=== PATIENT | male | born 1950 | race Asian ===

== ENCOUNTER 2019-12-07 14:41 | Emergency (ER) | payer MEDICARE ==
[~2019-12-07] VITALS: Ht 162.6 cm; Wt 68.9 kg
[2019-12-07] MEDS ORDERED: ATOR10TA PO (14:48)
[2019-12-07] MEDS ORDERED: MELA5TAB PO (14:48)
[2019-12-07] MEDS ORDERED: CLON0.1T PO (14:48)
[2019-12-07] MEDS ORDERED: ALBU8.5H8 IH (14:48)
[2019-12-07] MEDS ORDERED: ATEN25TA PO (14:48)
[2019-12-07] MEDS ORDERED: ASCO500T9 PO (14:48)
[2019-12-07] MEDS ORDERED: METH-406 PO (14:48)
[2019-12-07] MEDS ORDERED: IBUP-2715 PO (14:48)
[2019-12-07] MEDS ORDERED: MAGN400O6 PO (14:48)
[2019-12-07] MEDS ORDERED: DULO30CA2 PO (14:48)
[2019-12-07] MEDS ORDERED: MULT-24 PO (14:48)
[2019-12-07] MEDS ORDERED: MELO-105 PO (14:48)
--- NOTE | 2019-12-07 15:00 | NUR ---
[facility]IB [facility] C/O HIGH BP 180S, PT IS AAOX4, NOT IN RESPIRATORY DISTRESS, HOOKED TO MONITOR, KEPT RESTED AND COMFORTABLE, WILL CONTINUE TO MONITOR.
--- NOTE | 2019-12-07 15:05 | NUR ---
SEEN AND EXAMINED BY .
--- NOTE | 2019-12-07 15:15 | NUR ---
IV LINE ESTABLISHED, BLOOD DRAWN AND SENT TO LAB.
[2019-12-07 15:41] LABS: BASOPHILS # (AUTO) 0.1 /CMM (0.0-0.2); BASOPHILS % (AUTO) 0.8 % (0.0-2.0); HEMATOCRIT 32 % (39-51); HEMOGLOBIN 10.3 g/dL (13.5-17.5); LYMPHOCYTES # (AUTO) 4.1 /CMM (0.8-4.8); LYMPHOCYTES % (AUTO) 33.9 % (20.0-44.0); MEAN CORPUSCULAR HGB CONC 32 g/dl (31.0-36.0); MEAN CORPUSCULAR VOLUME 84 fL (80-96); MONOCYTES # (AUTO) 1.1 /CMM (0.1-1.30); MONOCYTES % (AUTO) 9.4 % (2.0-12.0); NEUTROPHILS # (AUTO) 6.4 /CMM (1.8-8.9); NEUTROPHILS % (AUTO) 52.9 % (43.0-81.0); PLATELET COUNT (AUTO) 429 /CMM (150-450); RED BLOOD CELL COUNT(AUTO) 3.85 MIL/uL (4.5-6.0)
[2019-12-07 16:00] LABS: CALCIUM, SERUM 7.6 mg/dL (8.5-10.1); CARBON DIOXIDE 28 mmol/L (21-32); CHLORIDE 105 mmol/L (98-107); CREATININE 1.6 mg/dL (0.6-1.3); GLUCOSE 113 mg/dL (74-106); POTASSIUM 3.8 mmol/L (3.5-5.1); SODIUM SERUM 142 mmol/L (136-145); UREA NITROGEN, BLOOD 13 mg/dL (7-18)
[2019-12-07] MEDS ORDERED: KETOROLAC TROMETHAMINE INJ 30 MG/ML VIAL IM ONE (16:00)
[2019-12-07] MEDS ORDERED: KETOROLAC TROMETHAMINE INJ 30 MG/ML VIAL ONE (16:17)
[2019-12-07] MEDS ORDERED: KETOROLAC TROMETHAMINE INJ 30 MG/ML VIAL IV ONE (16:30)
--- NOTE | 2019-12-07 16:44 | NUR ---
[facility] ETA 1815
--- NOTE | 2019-12-07 18:04 | NUR ---
TRANSFERED BACK TO [facility] IN STABLE CONDITION.
[2019-12-07 18:05] VITALS: BP 150/84
== END 2019-12-07 18:06 | disposition home or self-care (01) ==
LOC: ER 14:53
DX: G89.29 Other chronic pain (principal); M25.561 Pain in right knee; M25.562 Pain in left knee; R07.89 Other chest pain; I10 Essential (primary) hypertension; E78.5 Hyperlipidemia, unspecified; Z88.6 Allergy status to analgesic agent; Z79.899 Other long term (current) drug therapy; Y08.89XA Assault by other specified means, initial encounter; Y93.89 Activity, other specified; Y92.89 Other specified places as the place of occurrence of the external cause; Y99.8 Other external cause status
CPT/HCPCS: 36415; 71045; 80048; 84484; 85025; 85610; 93005; 96374; 99285; J1885